=== PATIENT | male | born 1960 | race Caucasian/White ===

== ENCOUNTER → 2021-01-23 | Day surgery (SDC) | payer OTHER ==
[~2021-01-23] VITALS: Ht 177.8 cm; Wt 81.6 kg
[~2021-01-23] MED LIST: NORCO 5-325 TA1 EACH PO; ONDANSETRON ODT8 MG PO
[2021-01-23 08:34] LABS: HCT 48.2 % (42.0-52.0); HGB 16.6 g/dl (13.2-18.0); MCH 31.8 pg (25.0-31.0); MCHC 34.4 g/dL (32.0-36.0); MCV 92.3 fL (78.0-100.0); MPV 10.6 fL (6.0-9.5); RBC 5.22 M/uL (4.70-6.00); RDW 12.8 % (11.5-14.0); WBC 8.2 K/uL (4.0-10.5)
[2021-01-23 08:49] LABS: ALBUMIN 3.7 g/dL (3.4-5.0); BILIRUBIN - TOTAL 0.5 mg/dL (0.2-1.0); BUN/CREAT RATIO (CALC) 12.8 RATIO; CREATININE 0.86 mg/dL (0.67-1.17); GLOBULIN (CALCULATION) 3.6 g/dL; POTASSIUM 4.4 mmol/L (3.5-5.1); TOTAL PROTEIN 7.3 g/dL (6.4-8.2)
== END | disposition home or self-care (01) ==
LOC: FAS 07:48
PROVIDERS: Surgery
DX: Z12.11 Encounter for screening for malignant neoplasm of colon (principal); K64.1 Second degree hemorrhoids; K57.30 Diverticulosis of large intestine without perforation or abscess without bleeding
CPT/HCPCS: 36415; 80053; J1100; J1610; J2250; J2704; J7120